=== PATIENT | female | born 1995 | race Caucasian/White ===

== ENCOUNTER 2020-04-28 13:40 | Emergency (ER) | payer SELFPAY ==
[2020-04-28 13:44] VITALS: TEMP 98.3
[2020-04-28 15:02] LABS: BASO % 0.6 % (0.0-2.0); EOS # 0.1 (0.0-0.7); EOS % 1.1 % (0-4.0); GRAN # 2.8 (1.4-6.5); GRAN % 59.7 % (42.2-75.2); HEMATOCRIT 34.8 % (37.0-47.0); LYMPH # 1.3 (1.2-3.4); LYMPH % 27.6 % (20.0-51.0); MEAN CELL VOLUME 84 fl (80.0-100.0); MEAN CORPUSCULAR HEMOGLOBIN 26 pg (27.0-31.0); MEAN CORPUSCULAR HGB CONC 32 g/dl (33.0-37.0); MEAN PLATELET VOLUME 10.6 fl (7.4-10.4); MONO # 0.5 (0.1-0.6); MONO % 10.8 % (1.7-9.3); PLATELET COUNT 296 K/mm3 (130-400); RED BLOOD COUNT 4.17 M/mm3 (4.10-5.30); REDCELL DISTRIBUTION WIDTH-CV 13.5 % (11.5-14.5)
[2020-04-28 15:13] LABS: ALBUMIN 4.5 gm/dL (3.5-5.0); BILIRUBIN,TOTAL 0.5 mg/dL (0.0-1.0); CALCIUM 9.3 mg/dL (8.4-10.2); CREATININE, serum 0.69 (0.52-1.25); TOTAL PROTEIN 7.7 gm/dL (6.4-8.2)
[2020-04-28 16:38] VITALS: BP 124/70; PULSE 87
== END 2020-04-28 16:43 | disposition home or self-care (01) ==
LOC: COL.ER 13:40
PROVIDERS: Nurse Practitioner
DX: K92.1 Melena (principal); F17.200 Nicotine dependence, unspecified, uncomplicated; Z32.02 Encounter for pregnancy test, result negative; Z88.6 Allergy status to analgesic agent

== ENCOUNTER 2021-01-01 10:03 | Observation (INO) | payer OTHER ==
[~2021-01-01] VITALS: Ht 165.1 cm; Wt 59.1 kg
[2021-01-01 10:26] LABS: COLLECTION METHOD CLEAN CATCH
[2021-01-01 10:36] LABS: MUCOUS Present /lpf; PH 5 (5-8); SQUAMOUS EPITHELIAL 0-2 /hpf; URINE APPEARANCE Hazy; URINE BACTERIA Rare /hpf; URINE BILIRUBIN Negative (NEGATIVE); URINE BLOOD 1+ (NEGATIVE); URINE COLOR Yellow; URINE GLUCOSE Negative (NEGATIVE); URINE KETONE 2+ (NEGATIVE); URINE LEUKOCYTE ESTERASE Negative (NEGATIVE); URINE NITRATE Negative (NEGATIVE); URINE PROTEIN(semi-quant) 1+ (NEGATIVE); URINE UROBILINOGEN Negative (NEGATIVE)
[2021-01-01 10:45] LABS: BASO % 0.6 % (0.0-2.0); EOS % 0.3 % (0-4.0); GRAN # 5.1 (1.4-6.5); GRAN % 76.6 % (42.2-75.2); HEMATOCRIT 44.1 % (37.0-47.0); LYMPH % 14.6 % (20.0-51.0); MEAN CELL VOLUME 87 fl (80.0-100.0); MEAN CORPUSCULAR HEMOGLOBIN 28 pg (27.0-31.0); MEAN CORPUSCULAR HGB CONC 32 g/dl (33.0-37.0); MEAN PLATELET VOLUME 10.8 fl (7.4-10.4); MONO # 0.5 (0.1-0.6); MONO % 7.8 % (1.7-9.3); PLATELET COUNT 363 K/mm3 (130-400); RED BLOOD COUNT 5.09 M/mm3 (4.10-5.30); REDCELL DISTRIBUTION WIDTH-CV 14.6 % (11.5-14.5)
[2021-01-01 11:08] LABS: ALBUMIN 5.3 gm/dL (3.5-5.0); BILIRUBIN,TOTAL 1.4 mg/dL (0.2-1.2); CALCIUM 9.8 mg/dL (8.4-10.2); CREATININE, serum 1.13 mg/dL (0.57-1.11); POTASSIUM 3.8 mmol/L (3.5-4.5); TOTAL PROTEIN 8.9 gm/dL (6.2-8.1)
[2021-01-01 13:51] LABS: CALCIUM 8.6 mg/dL (8.4-10.2); CREATININE, serum 0.85 mg/dL (0.57-1.11); POTASSIUM 3.9 mmol/L (3.5-4.5)
[2021-01-01 15:35] LABS: CALCIUM 8.5 mg/dL (8.4-10.2); CREATININE, serum 0.86 mg/dL (0.57-1.11); POTASSIUM 3.8 mmol/L (3.5-4.5)
[2021-01-01 20:00] VITALS: BP 120/76; PULSE 62; TEMP 98.3
--- NOTE | 2021-01-01 20:00 | NUR ---
Patient to medical room 318 at this time. She is alert and oriented and in now acute distress; states she has no pain and no nausea at this time. Vital signs are stable. Patient is thin but does not appear manourished. IV fluids initiated per order into left a/c IV. Ice water provided and education regarding visiting hours and call light system is provided. Patient has steady gait and is granted independent ambulation privileges. Will continue to monitor.
--- NOTE | 2021-01-01 21:00 | NUR ---
After drinking some water, patient begins to feel nauseous. PRN Zofran administered and thirty minutes later patient is sitll nauseated; order obtained for phernergan which is quickly effective. Patient also requests Benadryl, which she takes at home for insomnia. Order obtained and administered. No additional concerns, call light in reach.
[2021-01-01] MEDS ORDERED: BENADRYL25 M2 PO (22:50)
[2021-01-02 00:37] VITALS: BP 97/50; PULSE 65; TEMP 98.1
[2021-01-02 03:53] VITALS: BP 115/72; PULSE 59; TEMP 97.6
[2021-01-02 07:15] LABS: BASO % 0.7 % (0.0-2.0); EOS # 0.1 K/mm3 (0.0-0.7); EOS % 1.4 % (0-4.0); GRAN # 1.9 K/mm3 (1.4-6.5); HEMATOCRIT 37.2 % (37.0-47.0); LYMPH # 1.8 K/mm3 (1.2-3.4); LYMPH % 41.4 % (20.0-51.0); MEAN CELL VOLUME 85 fl (80.0-100.0); MEAN CORPUSCULAR HEMOGLOBIN 27 pg (27.0-31.0); MEAN CORPUSCULAR HGB CONC 32 g/dl (33.0-37.0); MEAN PLATELET VOLUME 11.2 fl (7.4-10.4); MONO # 0.6 K/mm3 (0.1-0.6); MONO % 13.3 % (1.7-9.3); PLATELET COUNT 288 K/mm3 (130-400); RED BLOOD COUNT 4.39 M/mm3 (4.10-5.30); REDCELL DISTRIBUTION WIDTH-CV 14.4 % (11.5-14.5)
[2021-01-02 07:26] LABS: CALCIUM 8.8 mg/dL (8.4-10.2); CREATININE, serum 0.82 mg/dL (0.57-1.11); POTASSIUM 3.2 mmol/L (3.5-4.5)
[2021-01-02 07:57] VITALS: BP 120/60; PULSE 64; TEMP 98.1
[2021-01-02] MEDS ORDERED: ZOFRAN ODT4 MG PO (08:48)
--- NOTE | 2021-01-02 09:21 | NUR ---
Initial visit; Patient thanked [facility] for stopping in and offering God's blessings.
--- NOTE | 2021-01-02 10:00 | NUR ---
whiting can worker met with patient to discuss discharge plan. Patient is currently living in , however frequently stays with her significant other Bharathi ([phone]) here in [facility]. Patient is fully independent with all activities of daily living and uses no medical equipment to assist with mobility. Patient has recently established care with the [facility] in [place] and has her first appointment in January. Currently she is utilitzing [facility] for perscription needs with no cost difficulty. Patient is not and has no adult children and states she does not have a DPOA-HC established. Social work educated the patient on the parameters of a DPOA-HC and requests to complete one this stay. whiting can worker provided form. Patient is planning on returning home post dc. Diacharge plan: Home
--- NOTE | 2021-01-02 10:24 | NUR ---
PT IS SITTING IN BED, ENVELOPE FOLDING MACHINE OPERATOR IS IN THE ROOM AT THIS TIME. PT STATES THAT SHE ATTEMPTED TO EAT SOME OF THE BREAKFAST, HOWEVER, IT DID COME BACK UP. PT REQUESTED ANTIEMETIC, OFFERED ZOFRAN, PT STATES THAT DID NOT WORK FOR HER, PHENERGAN WAS THE MEDICATION THAT DID WORK. PT WAS GIVEN POTASSIUM TO BE REPLACED PO WILL CHECK TO SEE IF THE NAUSEA IS CONFLICTING WITH ADMINISTRATION. NO FURTHER CONCERNS AT THIS TIME. ASSESSMENT COMPLETED. PT DENIES ANY PAIN.
--- NOTE | 2021-01-02 11:03 | NUR ---
This social sciences lecturer and RALF Walker witnessed patient's signature for DPOA-HC. Copy placed in the patients chart and the original given back to her.
[2021-01-02 11:12] VITALS: BP 110/66; PULSE 64; TEMP 97.6
[2021-01-02] MEDS ORDERED: PROTONIX 40MG T40 MG PO (13:22)
[2021-01-02 16:00] VITALS: BP 102/63; PULSE 64; TEMP 97.8
--- NOTE | 2021-01-02 17:27 | NUR ---
PT IS DISCHARGING HOME. PT STATES THAT SHE IS COMFORTABLE WITH THE PLAN OF CARE FOR POST HOSPITALIZATION.
== END 2021-01-02 17:49 | disposition home or self-care (01) ==
LOC: COL.ER 10:03 → MEDICAL 16:30
PROVIDERS: Emergency Medicine; ADMIT Student in an Organized Health Care Education/Training Program
DX: E87.2 Acidosis (principal); R94.4 Abnormal results of kidney function studies; R11.2 Nausea with vomiting, unspecified; E16.2 Hypoglycemia, unspecified; E87.6 Hypokalemia; N93.9 Abnormal uterine and vaginal bleeding, unspecified; F50.00 Anorexia nervosa, unspecified; Z87.891 Personal history of nicotine dependence; Z20.822 Contact with and (suspected) exposure to COVID-19
CPT/HCPCS: G0378; J2405; J2550; J2765; J7030